=== PATIENT | male | born 1995 | race Asian ===

== ENCOUNTER 2020-08-06 07:00 | Day surgery (SDC) | payer BC ==
[2020-08-04 14:36] VITALS: BMI 24.3
[2020-08-06] MEDS ORDERED: cefOXitin Sodium/Dextrose 2 GM/50 ML BAG ONE (07:35)
[2020-08-06] MEDS ORDERED: Bupivacaine PF 0.5% 30 ML VIAL ONE (08:47)
[2020-08-06] MEDS ORDERED: EPINEPHrine 1 MG/ML AMP ONE (08:47)
[2020-08-06] MEDS ORDERED: Bacitracin Zinc Ointment 30 gm TUBE ONE (08:47)
[2020-08-06] MEDS ORDERED: Fentanyl 100 MCG/2 ML VIAL ONE (08:52)
[2020-08-06] MEDS ORDERED: Midazolam HCl 2 mg/2 ml Vial ONE (09:03)
[2020-08-06] MEDS ORDERED: Famotidine/PF 20 mg/2ml Vial ONE (09:09)
[2020-08-06] MEDS ORDERED: Methylene Blue 50 MG/10 ML AMPUL ONE (09:34)
[2020-08-06] MEDS ORDERED: Ondansetron PF 4 MG/2 ML Vial ONE (10:08)
[2020-08-06] MEDS ORDERED: Ketorolac Tromethamine 30 MG/ML VIAL ONE (10:08)
[2020-08-06] MEDS ORDERED: Lidocaine 1% PF 5 ML VIAL ONE (10:08)
[2020-08-06] MEDS ORDERED: PROPOFOL 200 MG/20 ML VIAL ONE (10:08)
[2020-08-06] MEDS ORDERED: Dexamethasone 20 MG/5 ML VIAL ONE (10:08)
[2020-08-06] MEDS ORDERED: PHENYLEPHRINE-NS 100 MCG/ML 10 ML SYRINGE ONE (10:08)
== END 2020-08-06 12:10 | disposition home or self-care (01) ==
LOC: SDC 07:00
PROVIDERS: ATTEND Surgery
PROC: 0H88XZZ Division of Buttock Skin, External Approach (ICD-10-PCS; principal; 2020-08-06)
DX: K60.3 Anal fistula (principal); Z88.8 Allergy status to other drugs, medicaments and biological substances; Z91.041 Radiographic dye allergy status
CPT/HCPCS: J0171; J0694; J1100; J1885; J2250; J2405; J2704; J3010; Q9968; S0020; S0028

== ENCOUNTER 2021-01-18 09:35 | Day surgery (SDC) | payer BC ==
[2021-01-17 16:33] VITALS: BMI 23.6
[2021-01-18 10:52] LABS: #Eosinphils 0.1 thou/uL (0.0-0.7); #Lymphocytes 1.3 thou/uL (1.20-3.40); #Neutrophils 8.1 thou/uL (1.40-6.50); %Basophils 0.1 % (0.0-1.0); %Eosinophils 0.5 % (0.0-10.0); %Lymphocytes 12.4 % (21.0-51.0); %Monocytes 9.1 % (0.0-10.0); %Neutrophils 77.8 % (42.0-75.0); Hemoglobin 16.1 g/dL (14.0-18.0); Mean Corpuscular HGB CONC 33.4 g/dL (32.0-36.0); Mean Corpuscular Hemoglobin 28.4 pg (27.0-31.0); Platelet Count 243 thou/uL (130-400); RBC Distribution Width 11.3 % (11.5-14.5); Red Blood Cell (RBC) Count 5.67 mill/uL (4.70-6.10); White Blood Cell (WBC) Count 10.4 thou/uL (4.8-10.8)
[2021-01-18] MEDS ORDERED: Fentanyl 100 MCG/2 ML VIAL ONE (11:55)
[2021-01-18] MEDS ORDERED: cefOXitin Sodium/Dextrose 2 GM/50 ML BAG ONE (11:59)
[2021-01-18] MEDS ORDERED: Dexamethasone 20 MG/5 ML VIAL ONE (12:15)
[2021-01-18] MEDS ORDERED: Ondansetron PF 4 MG/2 ML Vial ONE (12:15)
[2021-01-18] MEDS ORDERED: Lidocaine 1% PF 5 ML VIAL ONE (12:15)
[2021-01-18] MEDS ORDERED: Ketorolac Tromethamine 30 MG/ML VIAL ONE (12:15)
[2021-01-18] MEDS ORDERED: PROPOFOL 200 MG/20 ML VIAL ONE (12:15)
[2021-01-18] MEDS ORDERED: Meperidine HCl/PF 25 MG/ML VIAL ONE (12:58)
== END 2021-01-18 14:09 | disposition home or self-care (01) ==
LOC: SDC 09:35
PROVIDERS: ATTEND Surgery
PROC: 0D9Q7ZZ Drainage of Anus, Via Natural or Artificial Opening (ICD-10-PCS; principal; 2021-01-18)
DX: K61.0 Anal abscess (principal); Z91.041 Radiographic dye allergy status
CPT/HCPCS: 36415; 85025; 87070; 87205; J0694; J1100; J1885; J2175; J2405; J2704; J3010